=== PATIENT | female | born 1950 | race Caucasian/White ===

== ENCOUNTER 2018-02-12 12:49 | Day surgery (SDC) | payer OTHER ==
[~2018-02-12] VITALS: Ht 162.6 cm; Wt 115.9 kg
[~2018-02-12 12:49] MED LIST: LIDOCAINE HCL 1% PF 5 ML SYRINGE OTHER ONE; ONDANSETRON HCL 4 MG/2 ML VIAL IV ONE; PHENYLEPH/NS 1000 MCG/10 ML SYR IV ONE; PROPOFOL 200 MG/20 ML AMP IV ONE; ePHEDrine/NS 25 MG/5 ML SYRINGE IV ONE
[2018-02-12 13:38] VITALS: BP 136/81; PULSE 72; RESP 18; O2SAT 92
[2018-02-12] MEDS ORDERED: FENO160T PO (13:38)
[2018-02-12] MEDS ORDERED: CARV6.252 PO (13:38)
[2018-02-12] MEDS ORDERED: ASPI-183 PO (13:38)
[2018-02-12] MEDS ORDERED: HYDR200T3 PO (13:38)
[2018-02-12] MEDS ORDERED: LEVO75TA3 PO (13:38)
[2018-02-12] MEDS ORDERED: ULOR40TA (13:38)
[2018-02-12] MEDS ORDERED: ESCI10TA PO (13:38)
[2018-02-12] MEDS ORDERED: CLOP75TA PO (13:38)
[2018-02-12] MEDS ORDERED: FOLI400T PO (13:38)
[2018-02-12] MEDS ORDERED: ROSU1TAB6 PO (13:38)
[2018-02-12 14:08] LABS: AUTOMATED NEUTROPHIL # 4.7 TH/MM3 (1.8-7.7); BASOPHIL # 0.1 TH/MM3 (0-0.2); BASOPHIL % 1.2 % (0.0-2.0); EOSINOPHIL # 0.2 TH/MM3 (0-0.4); EOSINOPHIL % 3.2 % (0.0-4.0); HEMATOCRIT 32.7 % (35.0-46.0); HEMOGLOBIN 10.3 GM/DL (11.6-15.3); LYMPH % 13.8 % (9.0-44.0); LYMPHOCYTE # 0.9 TH/MM3 (1.0-4.8); MEAN CELL VOLUME 88.8 FL (80.0-100.0); MEAN CORPUSCULAR HEMOGLOBIN 27.9 PG (27.0-34.0); MEAN CORPUSCULAR HGB CONC 31.4 % (32.0-36.0); MEAN PLATELET VOLUME 7.8 FL (7.0-11.0); MONO % 7.3 % (0.0-8.0); MONOCYTE # 0.5 TH/MM3 (0-0.9); NEUT % 74.5 % (16.0-70.0); PLATELET COUNT 419 TH/MM3 (150-450); RED BLOOD COUNT 3.69 MIL/MM3 (4.00-5.30); RED CELL DISTRIBUTION WIDTH 15.8 % (11.6-17.2); WHITE BLOOD COUNT 6.3 TH/MM3 (4.0-11.0)
[2018-02-12] MEDS ORDERED: CHLORHEXIDINE GLUCONATE 2 % 1 PACK (2 CLOTHS) TOPICAL SCH (14:15)
[2018-02-12] MEDS ORDERED: SODIUM CHLORID 0.9% 500 ML IV PRN (14:15)
[2018-02-12] MEDS ORDERED: MUPIROCIN 2% OINT 1 APPLIC/GM SYR NASAL SCH (14:15)
[2018-02-12] MEDS ORDERED: VANCOMYCIN 1000 MG/NS 250 ML IV SCH ×2 (14:15)
[2018-02-12] MEDS ORDERED: POVIDONE IODINE 5% (ANTISEPSIS KIT) 4 APPLICATIONS EACH NARE SCH (14:15)
[2018-02-12] MEDS ORDERED: ceFAZolin 2 GM PREMIX 50 ML IV SCH (14:15)
[2018-02-12] MEDS ORDERED: SODIUM CHLORID 0.9% 500 ML INJ 500 ML IV SCH (14:15)
[2018-02-12] MEDS ORDERED: CHLORHEXIDINE GLUCONATE 2 % 1 PACK (2 CLOTHS) TOPICAL PRN (14:15)
[2018-02-12] MEDS ORDERED: LACTATED RINGER'S 1000 ML IV PRN (14:15)
[2018-02-12] MEDS ORDERED: POVIDONE IODINE 5% (ANTISEPSIS KIT) 4 APPLICATIONS EACH NARE PRN (14:15)
[2018-02-12] MEDS ORDERED: NO Heparin, Lovenox, Coumadin at least 12 hours prior to procedure. PRN (14:15)
[2018-02-12] MEDS ORDERED: METOPROLOL TARTRATE 25 MG TAB PO PRN (14:15)
[2018-02-12] MEDS ORDERED: LORazepam 1 MG TAB SL SCH (14:15)
[2018-02-12 14:23] LABS: BICARBONATE 22.2 MEQ/L (21.0-32.0); CREATININE 1.74 MG/DL (0.50-1.00)
[2018-02-12 14:24] LABS: INTERNATIONAL NORMALIZED RATIO 1.1 RATIO; PROTHROMBIN TIME - PATIENT 11.2 SEC (9.8-11.6)
[2018-02-12] MEDS ORDERED: LIDOCAINE HCL 2% 20 ML VIAL ONE (14:41)
[2018-02-12] MEDS ORDERED: LIDOCAINE HCL 1% PF 30 ML VIAL ONE (14:43)
[2018-02-12] MEDS ORDERED: VANCOMYCIN 500 MG VIAL ONE (15:45)
--- NOTE | 2018-02-12 17:13 | CATHPROC ---
wutabout HIS Report Study Information Study Number Admission Scheduled Start Study Start [id number] Feb 12 2018 12:49PM 02/12/2018 Feb 12 2018 3:51PM [facility] Service Cardiac Pacer/ICD Admit Source Facility Department Other [facility] Physician and Clinical Staff Initial Licha [facility] Abigail Jonas RN Other Norma, Arlene,GREENHOUSE TRANSPLANTER Other Anesthesia, SET KEY DRIVER Recorder Shilpa Mayer,GREENHOUSE TRANSPLANTER TECH2 Scrub Ryan Evangelista,RT(R) Procedures Performed Procedure Location (Site) Vessel Name Lead Insertion Venogram Subclav. Vein (Lft Subclavian Vein Equipment Time Auto Apprentice Mechanic Description Size Mfg Part Number Used/Scraped [id number] 16:34 [employer] WIRE, ASAHI PROWATER 180CM 180CM Used *[id number] [employer]/ EP 16:58 DEFIBRILLATOR, X4 FILM MASKER-D DDDR [id number] Used PACER [employer]/ EP 16:28 LEAD, ENDOTAK RELIANCE SG 0293 Used PACER [employer]/ EP 16:42 LEAD, INGEVITY MRI 52CM 52CM [id number] Used PACER DERMABOND, ADHESIVE SKIN [id number] 15:57 CORDIS/PACER * Used GLUE MINI *[id number] 15:57 MEDLINE INDUSTRIES SUTURE, STRIP PLUS 1/2" * Used *[id number] 15:57 MEDLINE PACER RANGEL, LIMB * 2530 *[id number] Used [id number] 15:57 MEDLINE PACER PACK, PACER CUSTOM * Used *[id number] 16:01 [employer] MEDICAL PACER SAFE SHEATH, FR7, 13CM FR 7 [id number] Used 16:01 [employer] MEDICAL PACER SAFE SHEATH, FR9, 13CM FR 9 [id number] Used 16:01 [employer] MEDICAL PACER SAFE SHEATH, FR9, 13CM FR 9 CLS-1009 Used 16:08 Needle Sponge Count 2 22 Used 16:08 Needle Sponge Count 20 200 Used 16:08 Needle Sponge Count 5 5 Used 16:36 NYCOMED OMNIPAQUE, 350 MG, 50ML 50ML [id number] Used SUTURE, 0 ETHIBOND [CT1] (CX21D), 8pk SUTURE, 2-0 VICRYL [CT1] ([id number]) SUTURE, 2-0 VICRYL [CT1] (TTT692R) [id number] 15:57 [employer] BLANKET,WARM AIR CCL * Used *[id number] 16:35 [facility] [employer] LIVEWIRE, QUAD, MED SWEEP FR 6 Used *[id number] [facility] PAD, ELECTROSURGICAL 15:57 * [id number] *[id number] Used SURGICAL GROUNDING ORANGE LEAD, ATTAIN PERFORMA 16:40 VITATRON MEDTR[employer] 88CM 4398-88CM Used STRAIGHT, 88CM [id number] 15:57 [employer] RUI. / * Used *[id number] Equipment Model, Serial, Lot Number and Expiration Data Description Model Number Serial Number Lot Number Expiration Date DEFIBRILLATOR, X4 FILM MASKER-D G158 [id number] 11-09-2019 LEAD, ATTAIN PERFORMA 4398-88cm [id number] 10-23-2019 STRAIGHT, 88CM LEAD, ENDOTAK RELIANCE SG 0293 [id number] 10-15-2019 LEAD, INGEVITY MRI 52CM 7741 [id number] 11-21-2019 History: Allergies Allergy Reaction No Known Allergies History: Risk Factors Hypertension Dyslipidemia Previous PR Yes Yes Yes Cerebrovascular Peripheral Artery Disease Disease Medication Medication Total Dose (Bolus/Oral) Medication Total Dosage/Unit 2% XYLOCAINE 50 mL Medications (Bolus/Oral) Medication Time Given Dosage/Unit Administered By Reason 2% XYLOCAINE 02/12/2018 4:17:22 PM 50 mL Anesthesia, SET KEY DRIVER 50 mL 2% XYLOCAINE given in lab by Anesthesia, SET KEY DRIVER via Subcutaneous to left upper chest. Ordered by Licha Jung. Medication (Drip) Medication Time Given Dosage/Unit Concentration/Unit Diluent (ml) Solution ANCEF 02/12/2018 3:56:31 PM 2 g 2 g ANCEF given in lab by Anesthesia, SET KEY DRIVER in Right Forearm via Peripheral IV. IV Solutions 02/12/2018 3:54:28 PM 0 mL (IV) 500 NaCl .9 Patient arrived on IV Solutions in Right Forearm via Peripheral IV. Pump/Drip Flow = 20 ml/hr using N aCl .9. IV Solutions 02/12/2018 3:54:29 PM 0 mL (IV) 500 NaCl .9 Patient arrived on IV Solutions in Left Forearm via Peripheral IV. Pump/Drip Flow = 20 ml/hr using Na Cl .9. VANCOMYCIN DRIP 02/12/2018 3:26:17 PM 1 g 1 g VANCOMYCIN DRIP given in lab by Anesthesia, SET KEY DRIVER in Right Forearm via Peripheral IV. Ordered by Licha Martines. Chronological Log Time Study Chronological Log 15:26:17 1 g VANCOMYCIN DRIP given in lab by Anesthesia, SET KEY DRIVER in Right Forearm via Peripheral IV. Ordered by Licha Jung. 15:51:46 NOTE: This patient is undergoing an additional procedure while still in the Cardiac [facility]. 15:51:48 Initial procedure has been completed. Beginning additional procedure. 15:51:50 2% CHLORHEXIDINE GLUCONATE WASH AND NASAL SWIPE DONE PRIOR TO PROCEDURE. 15:51:51 Anesthesia remaines at bedside. continues care of patient. LMA remains, placed during EP study. 15:51:55 Bovie ground pad applied to: right upper thigh 15:51:56 Disposable Defibrillator Pads Placed On Patient. 15:53:29 HR=66 bpm, SpO2=98 %, Resp=18 B/min 15:54:13 Consent signed by the physician and the patient and verified by the [facility] staff. 15:54:19 Patient has been NPO for More than 6Hrs. 15:54:22 Disposable Defibrillator Pads Placed On Patient. 15:54:23 Perez Prominences Protected 15:54:27 A # 20 IV was noted in the Forearm (right). Grade = 0 15:54:28 Patient arrived on IV Solutions in Right Forearm via Peripheral IV. Pump/Drip Flow = 20 ml/ hr using NaCl .9. 15:54:28 A # 20 IV was noted in the Forearm (left). Grade = 0 15:54:29 Patient arrived on IV Solutions in Left Forearm via Peripheral IV. Pump/Drip Flow = 20 ml/h r using NaCl .9. 15:54:30 History and physical on the chart or being dictated. 15:54:31 Table restraints applied according to hospital policy 15:54:35 Left Upper Chest Prepped and draped after a 3 min wait time. 15:56:31 2 g ANCEF given in lab by Anesthesia, SET KEY DRIVER in Right Forearm via Peripheral IV. First Sponge And Instrument Count Done by Ryan Evangelista, RT(R). 16:07:16 Hypo's: 5, Sponges: 20, Bovie/scratch: 2 Sutures: 10, Blades: 1, Instruments: 23, Syveck Patches: 0 Verified by Angeles Jonas RN Time Out. Correct patient, procedure, procedure equipment, site and side verified with physicia n present. Time 16:16:44 concurred by MD, individual staff and SET KEY DRIVER. Time Out #2 - Consents verified, patient in correct position, all results are labled and displa yed, safety precautions 16:16:49 taken, antibiotics administered. Time out concurred by MD, individual staff and SET KEY DRIVER in procedu re 16:17:20 Case Start 50 mL 2% XYLOCAINE given in lab by Anesthesia, SET KEY DRIVER via Subcutaneous to left upper chest. Order ed by Fabiana, 16:17:22 Licha. 16:21:05 Vascular access was obtained in the Subclav. Vein (Lft. 16:21:06 Wire inserted 16:22:24 Vascular access was obtained in the Subclav. Vein (Lft. 16:22:32 Wire inserted 16:22:47 Vascular access was obtained in the Subclav. Vein (Lft. 16:22:53 Wire inserted 16:23:02 Surgical Incision Made. 16:24:00 A pocket was created at the Lt. upper chest. 16:27:01 A SAFE SHEATH, FR9, 13CM FR 9 was advanced into the Subclav. Vein (Lft using the Percutaneo us technique. 16:27:33 A LEAD, ENDOTAK RELIANCE SG was inserted and positioned in the RV. 16:28:27 Lead placement verified under fluoroscopy 16:29:29 The RV lead impedance and threshold being tested. 16:30:33 The RV lead was sutured to the fascia. 16:31:07 A SAFE SHEATH, FR7, 13CM FR 7 was advanced into the Subclav. Vein (Lft using the Percutaneo us technique. 16:31:37 A LEAD, INGEVITY MRI 52CM 52CM was inserted and positioned in the RA. 16:32:13 Lead placement verified under fluoroscopy 16:32:15 The Atrial lead impedance and threshold is being tested. 16:33:16 The Atrial lead was sutured to the fascia. 16:34:24 A SAFE SHEATH, FR9, 13CM FR 9 was advanced into the Subclav. Vein (Lft using the Percutaneo us technique. A LIVEWIRE, QUAD, MED SWEEP FR 6 was advanced vis Subclav. Vein (Lft and placed in the CS. Plac ement was 16:34:41 visually confirmed under fluoroscopy. 16:38:18 The Subclav. Vein (Lft was manually injected with 5 cc's of contrast. OMNIPAQUE, 350 MG, 50 ML 50ML used. 16:39:30 Livewire Catheter was removed 16:39:34 Prowater Wire inserted 16:39:36 A LEAD, ATTAIN PERFORMA STRAIGHT, 88CM 88CM was inserted and positioned in the CS/LV. 16:46:15 Lead placement verified under fluoroscopy 16:46:17 The CS/LV lead impedance and threshold is being tested. 16:47:30 Prowater Wire inserted, lead repositioned, wire removed. 16:48:10 The CS/LV lead impedance and threshold is being tested. 16:50:18 The CS/LV lead was sutured to the fascia. 16:55:10 Pocket flushed with antibiotic solution 16:57:39 A DEFIBRILLATOR, X4 FILM MASKER-D DDDR was connected and placed in the pocket. 16:59:27 Closing the pocket. Second Sponge And Instrument Count Done by Ryan Evangelista RT(R). 16:59:59 Hypo's: 5, Sponges: 20, Bovie/scratch: 2 Sutures: ~SUTURE~, Blades: 1, Instruments: ~INSTRU~, Syveck Patches: 0 Verified by Ewa Myers 17:03:15 The pocket was closed. 17:03:16 Case End 17:03:19 Implant Procedure was performed. 17:03:24 A Bivent ICD Implant . (Dual) The Final Sponge And Instrument Count Done by Ryan Evangelista RT(R). 17:03:36 Hypo's: 5, Sponges: 20, Bovie/scratch: 2 Sutures: 10, Blades: 1, Instruments: 23, Syveck Patches: 0 Verified by Angeles Jonas RN 17:07:23 Steri-strips and a sterile dressing applied to site. 17:07:39 No case complications noted. 17:07:41 Cine recording checked. 17:07:46 PACU called. Spoke to 17:11:01 cs quad was removed under floro 17:15:20 Patient moved to stretcher 17:16:40 A sling was placed on the affected arm. End Study - Contrast Media Used In Study Contrast Total Opened (mL) Total Used (mL) Total Wasted (mL) Omnipaque 15 15 0 End Study - Radiation Exposure Fluoro Time (minutes) 8.9 End Study - Patient Disposition Complications Transferred To Interventional Outcome No Critical Care Bed successful
[2018-02-12] MEDS ORDERED: SODIUM CHLORIDE 0.9% FLUSH 10 ML FLUSH IV FLUSH PRN (17:30)
[2018-02-12] MEDS ORDERED: oxyCODONE/ACETAMINOPHEN 5 MG/325 MG TAB PO PRN ×2 (17:30)
[2018-02-12] MEDS ORDERED: SODIUM CHLOR 0.9% 250 ML INJ 250 ML IV PRN (17:30)
[2018-02-12] MEDS ORDERED: ATROPINE SULFATE 1 MG/ML VIAL IV PUSH PRN (17:30)
[2018-02-12] MEDS ORDERED: BACITRACIN OINT 0.9 GM PKT TOP ONE (17:30)
[2018-02-12] MEDS ORDERED: ONDANSETRON HCL 4 MG/2 ML VIAL IV PUSH PRN (17:30)
[2018-02-12] MEDS ORDERED: LIDOCAINE HCL 1% 50 ML VIAL INFIL PRN (17:30)
[2018-02-12] MEDS ORDERED: LORazepam 2 MG/ML VIAL IV PUSH PRN (17:30)
--- NOTE | 2018-02-12 17:36 | PD.CARD ---
BIV/ICD Implantation PROCEDURE DATE: Feb 12, 2018 NYHA Classification: Class III (Moderate) Prevention: Primary BIV/ICD IMPLANT PROCEDURE Biventricular pacer defibrillator implantation. INDICATION FOR PROCEDURE Ms. Fan is a 67-year-old female with congestive heart failure, cardiomyopathy, wide QRS, was referred for electrophysiology study and biventricular pacer defibrillator implantation. Post electrophysiology study the patient was kept on the table for device implantation. The risks, the nature and the benefit of the procedure were clearly stated to her. The risks include pneumothorax, cardiac perforation, stroke and even . He understood and agreed to proceed. PROCEDURE As written informed consent was obtained prior to electrophysiology study, the patient was kept on the table where he was prepped and draped in the usual sterile fashion. Conscious sedation was initiated and maintained throughout the procedure by the anesthesiologist. Once sedation was verified, the left infraclavicular area was anesthetized with 2% Xylocaine. Using modified Seldinger technique, the left subclavian vein was cannulated on three occasions and three guidewire were advanced. Then, using an 11 blade scalpel, a 3 cm incision was made over the existing generator. The incision was taken down to the fascial layer using Bovie cautery and blunt dissection. Into the inferomedial direction, a device pocket was dissected. Then the wires were dissected into pocket. A 2-0 Vicryl suture was placed around the wires to prevent back-bleeding. At this point, over the lateral wire, a 9-Ukrainian dilator and introducer were advanced. As the dilator and wire were removed, an active fixation right ventricular pacing sensing defibrillatory lead was advanced. After adequate pacing and sensing thresholds were obtained, the lead was secured in the pocket using # 2 Ethibond suture. Then, over the lateral wire, a 7-Ukrainian dilator and introducer was advanced. As the dilator and wire were removed, an active fixation right atrial pacing and sensing lead was advanced. After adequate pacing and sensing threshold was obtained, the lead was secured in the pocket using a# 2 Ethibon suture. Then, over the remaining wire, a 9-Ukrainian dilator and introducer were advanced. As the dilator and wire were removed, a CS cannulation sheath was advanced. Through the sheath a quadripolar steerable catheter was advanced. After multiple manipulations the coronary sinus was cannulated, and CS venography showed an adequate lateral branch. Using a Prowater wire the lateral branch was cannulated and the lead was advanced over the wire. After adequate pacing and sensing thresholds were obtained, the peel-away introducer was removed and the cutter introducer was removed, and the lead was secured in the pocket using # 2 Ethibond suture. At that point, the pocket was copiously irrigated with antibiotic solution. The leads were connected to the generator and placed into pocket. Because of the patient's general condition and was so unstable during the procedure, I decided not to proceed with device testing. I did proceed with wound closure. The deep fascial layer was approximated using # 2-0 Vicryl suture in a continuous fashion. The subcutaneous layer was approximated with 2-0 Vicryl suture in a continuous fashion. The subcuticular layer was approximated with 2-0 Vicryl suture in a continuous fashion. Dermabond adhesive was applied to the wound followed by a sterile pressure dressing. This was a very complex case. The patient was unstable during the procedure, but no complications reported. Blood loss was minimal. IMPLANTED HARDWARE The implanted biventricular pacer defibrillator is a [employer] model G158, serial number [id number]. The right atrial pacing and sensing lead is a [employer] model number 7741, serial number [id number]. The right ventricle pacing sensing defibrillatory is a [employer] model 0293, serial number [id number]. The left ventricular pacing sensing lead is a Medtronic model 4398, serial number [id number]. THRESHOLDS The right atrial pacing threshold in a bipolar mode was 1.6V @ 0.4 ms. Lead 670 ohms. P wave @ 3.2 mV. The right ventricle pacing threshold in the bipolar mode was 0.7 volts at 0.4 milliseconds, lead impedance 743 ohms, and shocking impedance 56 ohms. The left ventricular pacing threshold in the bipolar mode was 3.5 volts at 1.0 milliseconds, lead impedance 520 ohms. SETTINGS The device was set in a DDD 60, upper limit 120 beats per minute. LV first by 40 milliseconds. The defibrillatory portion was set for two zones. One zone for Ventricular tachycardia monitoring between 160 and 240 beats per minute on the monitor ventricular tachycardia. The initial therapy consisted of one burst of ATP, one RAMP, 81%, 10 pause, 10 millisecond decremental followed by 21, 31 and 41 joules defibrillatory shock. The second zone is for ventricle fibrillation above 240, the first therapy at 31 and all subsequent shocks at 41 joules defibrillatory shock. CONCLUSIONS Successful biventricular pacer defibrillator implantation, that was a complex case. COMMENT AND RECOMMENDATION The patient will be transferred to the telemetry unit. She will be observed and when stable can be discharged home. Licha Jung MD Feb 12, 2018 17:36
--- NOTE | 2018-02-12 17:45 | PD.CARD ---
ELECTROPHYSIOLOGY STUDY PROCEDURE DATE: Feb 12, 2018 ELECTROPHYSIOLOGY STUDY NOTE PROCEDURE Electrophysiology study, coronary sinus cannulation and repeat electrophysiology study post isuprel. HISTORY Ms. Fan is a 67 -year-old female with congestive heart failure, cardiomyopathy, ejection fraction 25 % referred for electrophysiology study and biventricular pacer defibrillator implantation for sudden primary prevention and resynchronization. The risks, the nature and the benefit of the procedure are clearly stated to her . Risks include pneumothorax, cardiac perforation, stroke and even . She understood and agreed to proceed. PROCEDURE NOTE After written informed consent was obtained, the patient was brought to the EP lab where she was prepped and draped in the usual sterile fashion. Conscious sedation was initiated and maintained throughout the procedure by anesthesiologist. Once sedation was verified, the right inguinal area was anesthetized with 2% Xylocaine. Using modified Seldinger technique, the right femoral vein was cannulated on two occasions and three guidewires were advanced. Then, over the wires two 5 Cook Islander Hemaquets were advanced. Then, under fluoroscopic guidance through the 5 Cook Islander Hemaquet three 5 Cook Islander Nikita curved quadripolar electrophysiology catheters were advanced and positioned along the His, upper right atrium and coronary sinus. The patient was in atrial fibrillation. The right atrial catheter was placed at the right ventricular apex. Ventricular pacing protocol was performed. Ventricular pacing protocol, no ventricular tachycardia was induced. Ventricular pacing protocol was terminated due to low blood pressure. At that point, procedure was complete. All catheters and Hemaquet were removed. The patient will be kept on the table and a biventricular pacer defibrillator will be implanted for sudden primary prevention and resynchronization therapy. No incident reported. The patient tolerated the procedure. Blood loss minimal. IMPRESSION 1. Electrocardiogram: At baseline the patient was in sinus rhythm. Post-procedure electrocardiogram was unchanged. 2. Basic Interval: The basic cycle length was around 880 milliseconds. AH 80ms. H-V was around 60 milliseconds. 3. Ventricular Pacing Protocol: No ventricular tachyarrhythmia was induced. Isuprel. CONCLUSIONS Negative electrophysiology for ventricular arrhythmia. COMMENT AND RECOMMENDATION The patient will be kept on the table and a biventricular pacer defibrillator will be implanted for sudden primary prevention and resynchronization therapy. Licha Jung MD Feb 12, 2018 17:45
[2018-02-12] MEDS ORDERED: DO NOT ADM ANY ANTICOAGULANT DRUGS PRN (18:15)
--- NOTE | 2018-02-12 18:55 | RADRPT ---
EXAM DATE/TIME: 02/12/2018 19:13 [place] COMPARISON: No previous studies available for comparison. INDICATIONS : SP BIV ICD. MEDICAL HISTORY : None. SURGICAL HISTORY : None. ENCOUNTER: Initial ACUITY: 1 day PAIN SCORE: Non-responsive. LOCATION: Bilateral chest FINDINGS: There is a multilead pacing device seen in the left chest. Heart size is enlarged. The lungs are david sly clear. Effusions are not clearly seen. CONCLUSION: The patient device is well placed. The heart size is enlarged. Floyd Morgan MD on February 12, 2018 at 18:52 Board Certified Radiologist. This report was verified electronically.
[2018-02-12] MEDS ORDERED: ATORVASTATIN 20 MG TAB PO SCH (21:00)
[2018-02-12 21:30] VITALS: TEMP 97.9
[2018-02-12] MEDS: SODIUM CHLORIDE 0.9% FLUSH 10 ML FLUSH IV FLUSH SCH (21:30)
[2018-02-12] MEDS: CARVEDILOL 6.25 MG TAB PO SCH (22:00)
[2018-02-12] MEDS: ceFAZolin 2 GM PREMIX 50 ML IV SCH (23:27)
[2018-02-13] MEDS ORDERED: LEVOTHYROXINE SODIUM 75 MCG TAB PO SCH (06:00)
[2018-02-13 06:23] LABS: INTERNATIONAL NORMALIZED RATIO 1.1 RATIO; PROTHROMBIN TIME - PATIENT 11.4 SEC (9.8-11.6)
[2018-02-13] MEDS: ceFAZolin 2 GM PREMIX 50 ML IV SCH (08:00)
[2018-02-13] MEDS: SODIUM CHLORIDE 0.9% FLUSH 10 ML FLUSH IV FLUSH SCH (08:26)
[2018-02-13 08:27] VITALS: BP 122/68; PULSE 68; RESP 18; O2SAT 97
[2018-02-13] MEDS: CARVEDILOL 6.25 MG TAB PO SCH (08:45)
[2018-02-13] MEDS ORDERED: ASPIRIN 325 MG TAB PO SCH (09:00)
[2018-02-13] MEDS ORDERED: FOLIC ACID 1 MG TAB PO SCH (09:00)
[2018-02-13] MEDS ORDERED: CLOPIDOGREL 75 MG TAB PO SCH (09:00)
[2018-02-13] MEDS ORDERED: ESCITALOPRAM OXALATE 10 MG TAB PO SCH (09:00)
[2018-02-13] MEDS ORDERED: FENOFIBRATE 145 MG TAB PO SCH (09:00)
[2018-02-13] MEDS ORDERED: HYDROXYCHLOROQUINE SULFATE 200 MG TAB PO SCH (09:00)
--- NOTE | 2018-02-13 14:25 | HHI.PR ---
Subjective Remarks Feeling better Objective Vital Signs Date Time Temp Pulse Resp B/P (MAP) Pulse Ox O2 Delivery O2 Flow Rate FiO2 02/13/18 08:27 68 18 122/68 (86) 97 Room Air 02/13/18 06:00 64 18 134/62 (86) 96 Nasal Cannula 2 02/13/18 04:00 70 18 133/68 (89) 95 Nasal Cannula 2 02/13/18 02:00 66 18 129/63 (85) 94 Nasal Cannula 2 02/13/18 00:00 68 18 135/64 (87) 95 Nasal Cannula 2 02/12/18 21:30 97.9 72 18 137/86 (103) 95 Nasal Cannula 2 02/12/18 20:30 69 20 136/70 (92) 100 Nasal Cannula 2 02/12/18 19:30 68 20 142/67 (92) 100 Nasal Cannula 2 02/12/18 18:30 66 20 135/67 (89) 100 Nasal Cannula 2 02/12/18 18:15 65 20 138/74 (95) 100 Nasal Cannula 2 02/12/18 18:00 66 20 134/65 (88) 100 Nasal Cannula 2 02/12/18 17:45 65 20 139/65 (89) 100 Nasal Cannula 2 02/12/18 17:35 97.6 67 20 135/59 (84) 100 Nasal Cannula 2 I/O 02/12/18 02/12/18 02/12/18 02/13/18 02/13/18 02/13/18 07:00 15:00 23:00 07:00 15:00 23:00 Intake Total 620 ml 450 ml Output Total 375 ml Balance 245 ml 450 ml Intake Oral 620 ml 450 ml Output Urine Total 375 ml # Voids 1 Result Diagram: 02/12/18 1327 02/12/18 1327 Imaging Alert, fully oriented Lungs: ventilated Heart: S1, S2 regular, no gallop Abdomen: obese, no mass Ext: no edema Left infraclavicular area with a clean surgical wound Current Medications Medications (Trade) Dose Ordered Sig/Gio Route Start Time Stop Time Status Last Admin (Ativan) 1 mg CARBON PAPER COATING MACHINE SETTER SL 02/12/18 14:15 02/15/18 14:14 Miscellaneous Information NO Heparin, Loven... UNSCH PRN .XX 02/12/18 14:15 02/16/18 14:14 (Betadine 5% Antisepsis Kit) 2 applic CARBON PAPER COATING MACHINE SETTER EACH NARE 02/12/18 14:15 02/15/18 14:14 (Percocet 5-325 Mg) 1 tab Q4H PRN PO 02/12/18 17:30 02/12/18 19:00 (Percocet 5-325 Mg) 2 tab Q4H PRN PO 02/12/18 17:30 (Ativan Inj) 0.5 mg UNSCH PRN IV PUSH 02/12/18 17:30 02/13/18 17:29 (Atropine Inj) 0.5 mg UNSCH PRN IV PUSH 02/12/18 17:30 Sodium Chloride 250 ml @ 500 mls/hr ONCE PRN IV 02/12/18 17:30 02/13/18 17:29 (Zofran Inj) 4 mg Q4H PRN IV PUSH 02/12/18 17:30 (Xylocaine 1% Inj (50 ml)) 10 ml UNSCH PRN INFIL 02/12/18 17:30 02/13/18 17:29 Cefazolin Sodium/ Dextrose 50 ml @ 100 mls/hr Q8H IV 02/13/18 00:00 02/13/18 16:29 02/13/18 08:00 (NS Flush) 2 ml BID IV FLUSH 02/12/18 21:00 02/13/18 08:26 (NS Flush) 2 ml UNSCH PRN IV FLUSH 02/12/18 17:30 (Aspirin) 325 mg DAILY PO 02/13/18 09:00 02/13/18 08:26 (Coreg) 6.25 mg BID PO 02/12/18 21:00 02/13/18 08:45 (Plavix) 75 mg DAILY PO 02/13/18 09:00 02/13/18 08:26 (Lexapro) 10 mg DAILY PO 02/13/18 09:00 02/13/18 08:45 (Folate) 1 mg DAILY PO 02/13/18 09:00 02/13/18 08:45 (Plaquenil) 200 mg DAILY PO 02/13/18 09:00 02/13/18 08:45 (Synthroid) 75 mcg DAILY@0600 PO 02/13/18 06:00 02/13/18 05:40 (Tricor) 145 mg DAILY PO 02/13/18 09:00 02/13/18 08:45 (Lipitor) 20 mg HS PO 02/12/18 21:00 02/12/18 22:00 Miscellaneous Information ALL NURSING DEPARTME... UNSCH PRN .XX 02/12/18 18:15 02/13/18 18:14 Last Impressions Chest X-Ray 02/12/18 0000 Signed Impressions: Service Date/Time: Monday, February 12, 2018 19:13 - CONCLUSION: The patient device is well placed. The heart size is enlarged. Floyd Morgan MD Assessment and Plan Problem List: (1) CHF (congestive heart failure) ICD Codes: I50.9 - Heart failure, unspecified Plan: On optimal medical management (2) Biventricular automatic implantable cardioverter defibrillator in situ ICD Codes: Z95.810 - Presence of automatic (implantable) cardiac defibrillator Plan: Device well functioning Clean surgical wound Will be DH Follow up as previously scheduled Licha Jung MD Feb 13, 2018 14:25
[2018-02-13] MEDS ORDERED: SACUBITRIL/VALSARTAN 24 MG-26 MG TAB PO SCH (14:30)
[2018-02-13] MEDS ORDERED: SACU1TAB PO (14:31)
[2018-02-13] MEDS ORDERED: CEPH-460 PO (14:31)
[2018-02-13] MEDS ORDERED: OXYC1TAB63 PO (14:31)
--- NOTE | 2018-02-13 16:45 | EKG ---
Date Performed: 02/12/2018 Time Performed: 13:44:14 PTAGE: 67 years EKG: Sinus rhythm with borderline 1st degree A-V block. Leftward axis Left bundle branch block Abnormal ECG NO PREVIOUS TRACING DOCTOR: Jose Carlos Alejo Interpretating Date/Time 02/13/2018 16:46:29
--- NOTE | 2018-02-13 18:21 | EKG ---
Date Performed: 02/12/2018 Time Performed: 18:07:02 PTAGE: 67 years EKG: P-WAVE SYNCHRONOUS VENTRICULAR PACING Compared to previous tracing, ventricular pacing is n ew ABNORMAL RHYTHM ECG PREVIOUS TRACING : 02/12/2018 13.44 DOCTOR: Jose Carlos Alejo Interpretating Date/Time 02/13/2018 18:20:15
== END 2018-02-13 15:59 | disposition home or self-care (01) ==
LOC: HDOC 12:49 → HDIC 12:50 → HPAC 02-13 06:00 → HDOC 02-13 06:00 → HDIC 02-13 06:00 → HCIS 02-13 13:07 → HDOC 02-13 15:59
PROVIDERS: ATTEND Internal Medicine Interventional Cardiology
DX: I13.0 Hypertensive heart and chronic kidney disease with heart failure and stage 1 through stage 4 chronic kidney disease, or unspecified chronic kidney disease (principal); I50.9 Heart failure, unspecified; N18.9 Chronic kidney disease, unspecified; I44.0 Atrioventricular block, first degree; I44.7 Left bundle-branch block, unspecified; E78.5 Hyperlipidemia, unspecified; I73.9 Peripheral vascular disease, unspecified; R53.83 Other fatigue; R06.02 Shortness of breath; I25.2 Old myocardial infarction; D64.9 Anemia, unspecified; Z86.73 Personal history of transient ischemic attack (TIA), and cerebral infarction without residual deficits; Z79.82 Long term (current) use of aspirin
CPT/HCPCS: 00530; 33225; 33249; 71045; 80048; 85025; 85610; 85730; 86850; 86900; 86901; 93005; 93620; 93623; C1730; C1769; C1777; C1882; C1898; C1900; J0690; J2370; J2405; J3010; J3370